=== PATIENT | male | born 1965 | race Caucasian/White ===

== ENCOUNTER 2021-12-24 09:59 | Emergency (ER) | payer OTHER ==
[~2021-12-24] VITALS: Ht 172.7 cm; Wt 77.0 kg
[2021-12-24] MEDS ORDERED: MORPHINE SULFATE 10 MG/ML CPJ IM ONE (10:30)
[2021-12-24] MEDS: MORPHINE SULFATE 10 MG/ML CPJ IM NR ×2 (11:00→13:26)
[2021-12-24] MEDS ORDERED: HYDROCODONE/ACETAMINOPHEN 10/325MG TABLET PO ONE (12:15)
[2021-12-24] MEDS ORDERED: IBUP-2029 MT (12:26)
[2021-12-24] MEDS ORDERED: HYDR-4001 MT ×2 (12:26)
[2021-12-24] MEDS ORDERED: KETOROLAC 60MG/2ML VIAL IM ONE (13:00)
[2021-12-24 13:42] VITALS: BP 184/64
[2021-12-24] MEDS ORDERED: ACETAMINOPHEN WITH CODEINE 300/30MG TABLET PO ONE (13:45)
[2021-12-24] MEDS ORDERED: T3 PO (14:03)
== END 2021-12-24 14:00 | disposition home or self-care (01) ==
LOC: ER 10:05
DX: S42.294A Other nondisplaced fracture of upper end of right humerus, initial encounter for closed fracture (principal); F17.210 Nicotine dependence, cigarettes, uncomplicated; Z87.828 Personal history of other (healed) physical injury and trauma; Z88.5 Allergy status to narcotic agent; W01.0XXA Fall on same level from slipping, tripping and stumbling without subsequent striking against object, initial encounter; Y93.B1 Activity, exercise machines primarily for muscle strengthening; Y92.018 Other place in single-family (private) house as the place of occurrence of the external cause
CPT/HCPCS: 73030; 96372; 99284; J1885; J2270